=== PATIENT | male | born 1960 | race Caucasian/White ===

== ENCOUNTER 2025-08-26 13:57 | Inpatient (IN) ==
[2025-08-26] MEDS: IPRATROPIUM/ALBUTEROL 3 ML AMPUL.NEB NEB ONE ×5 (14:22→19:35)
[2025-08-26] MEDS: MAGNESIUM SULFATE 2 GM/50 ML BAG IV ONE (14:23)
[2025-08-26 15:12] LABS: Basophils # (Auto) 0.02 K/mcL (0.00-0.30); Basophils % (Auto) 0.2 % (0.0-2.0); Eosinophils # (Auto) 0.06 K/mcL (0.00-0.70); Eosinophils % (Auto) 0.7 % (0.0-7.0); Hematocrit 46.9 % (40.1-51.0); Hemoglobin 14.6 g/dL (13.7-17.5); Lymphocytes # (Auto) 0.86 K/mcL (1.50-4.80); Lymphocytes % (Auto) 9.7 % (15.5-49.0); Mean Corpuscular HGB Conc 31.1 g/dL (31.0-36.0); Monocytes # (Auto) 1.06 K/mcL (0.10-0.90); Monocytes % (Auto) 11.9 % (1.0-12.0); Neutrophils % (Auto) 76.7 % (38.0-78.0); Platelet Count 236 K/mcL (140-440); RBC 4.72 M/mcL (4.63-6.08); WBC 8.9 K/mcL (4.5-11.0)
[2025-08-26 15:19] LABS: Anion Gap 8.0 (8.0-16.0); Blood Urea Nitrogen 9 mg/dL (8-23); Calcium 9.0 mg/dL (8.6-10.4); Carbon Dioxide 38 mmol/L (22-30); Chloride 95 mmol/L (96-108); Glucose 101 mg/dL (70-105); Potassium 4.3 mmol/L (3.3-5.1); Sodium 141 mmol/L (133-145)
[2025-08-26] MEDS: 0.9 % SODIUM CHLORIDE 1,000 ML IV ONE (18:30)
[2025-08-26] MEDS ORDERED: ALBUTEROL SULFATE 60 PUFF INHALER INH PRN (21:28)
[2025-08-26] MEDS ORDERED: SENNOSIDES 1 TABLET PO PRN (21:57)
[2025-08-26] MEDS ORDERED: tiZANidine 4 MG TABLET PO PRN (21:57)
[2025-08-26] MEDS ORDERED: ONDANSETRON 4 MG/2 ML VIAL IV PRN (21:57)
[2025-08-26] MEDS ORDERED: ACETAMINOPHEN 325 MG TABLET PO PRN (21:57)
[2025-08-26] MEDS ORDERED: LACTULOSE 20 GM/30 ML ORAL.SOL PO PRN (21:57)
[2025-08-26] MEDS: IPRATROPIUM/ALBUTEROL 3 ML AMPUL.NEB NEB SCH (22:00)
[2025-08-26] MEDS: MIRTAZAPINE 15 MG TABLET PO SCH (23:42)
[2025-08-26] MEDS: 0.9 % SODIUM CHLORIDE 10 ML SYRINGE IV SCH (23:46)
[2025-08-26] MEDS: NICOTINE 7 MG PATCH TD SCH (23:48)
[2025-08-27] MEDS: AZITHROMYCIN 500 MG in DEXTROSE 5% IN WATER 250 ML IV SCH (00:07)
[2025-08-27] MEDS: IPRATROPIUM/ALBUTEROL 3 ML AMPUL.NEB NEB PRN (03:15)
[2025-08-27 06:22] LABS: VBG HCO3 37.8 mmol/L (24.0-28.0); VBG PCO2 62.4 mmHg (41.0-51.0); VBG PH 7.40 U (7.32-7.42); VBG PO2 28.1 mmHg (25.0-40.0)
[2025-08-27 06:29] LABS: Basophils # (Auto) 0.01 K/mcL (0.00-0.30); Basophils % (Auto) 0.2 % (0.0-2.0); Eosinophils # (Auto) 0 K/mcL (0.00-0.70); Eosinophils % (Auto) 0 % (0.0-7.0); Hematocrit 49.3 % (40.1-51.0); Hemoglobin 15.5 g/dL (13.7-17.5); Lymphocytes # (Auto) 0.22 K/mcL (1.50-4.80); Lymphocytes % (Auto) 3.7 % (15.5-49.0); Mean Corpuscular HGB Conc 31.4 g/dL (31.0-36.0); Monocytes # (Auto) 0.16 K/mcL (0.10-0.90); Monocytes % (Auto) 2.7 % (1.0-12.0); Neutrophils % (Auto) 92.2 % (38.0-78.0); Platelet Count 227 K/mcL (140-440); RBC 5.03 M/mcL (4.63-6.08); WBC 6.0 K/mcL (4.5-11.0)
[2025-08-27 07:10] LABS: ALT/SGPT 46 U/L (<40); AST/SGOT 28 U/L (<40); Albumin 4.3 gm/dL (3.2-5.2); Albumin/Globulin Ratio 1.3 (1.0-2.3); Alkaline Phosphatase 102 U/L (39-117); Anion Gap 9.0 (8.0-16.0); Bilirubin,Total 0.4 mg/dL (0.1-1.0); Blood Urea Nitrogen 12 mg/dL (8-23); Calcium 9.3 mg/dL (8.6-10.4); Carbon Dioxide 35 mmol/L (22-30); Chloride 95 mmol/L (96-108); Globulin 3.2 gm/dL (2.2-3.7); Glucose 155 mg/dL (70-105); Phosphorous 2.6 mg/dL (2.5-4.5); Potassium 4.5 mmol/L (3.3-5.1); Sodium 139 mmol/L (133-145)
[2025-08-27] MEDS: FINASTERIDE 5 MG TABLET PO SCH (08:34)
[2025-08-27] MEDS: TAMSULOSIN 0.4 MG CAPSULE PO SCH (08:34)
[2025-08-27] MEDS: CETIRIZINE 10 MG TABLET PO SCH (08:35)
[2025-08-27] MEDS: PANTOPRAZOLE 40 MG TABLET PO SCH (08:35)
[2025-08-27] MEDS: guaiFENesin 600 MG TAB.SR.12H PO SCH (08:35)
[2025-08-27] MEDS: DOCUSATE SODIUM 100 MG CAPSULE PO SCH (08:36)
[2025-08-27] MEDS: Fluticasone Furoate-Vilanterol [Breo Ellipta] 100 INH SCH (08:37)
[2025-08-27] MEDS: Umeclidinium [Incruse Ellipta] 62.5 mcg/actuation INH SCH (08:37)
[2025-08-27] MEDS ORDERED: hydrALAZINE 20 MG/ML VIAL IV PRN (09:02)
[2025-08-28 06:19] LABS: VBG HCO3 35.1 mmol/L (24.0-28.0); VBG PCO2 61.2 mmHg (41.0-51.0); VBG PH 7.38 U (7.32-7.42); VBG PO2 37.2 mmHg (25.0-40.0)
[2025-08-28 07:01] LABS: Phosphorous 4.1 mg/dL (2.5-4.5)
[2025-08-28 07:53] LABS: ALT/SGPT 44 U/L (<40); AST/SGOT 35 U/L (<40); Albumin 4.0 gm/dL (3.2-5.2); Albumin/Globulin Ratio 1.3 (1.0-2.3); Alkaline Phosphatase 89 U/L (39-117); Anion Gap 9.0 (8.0-16.0); Bilirubin,Total 0.4 mg/dL (0.1-1.0); Blood Urea Nitrogen 18 mg/dL (8-23); Calcium 9.2 mg/dL (8.6-10.4); Carbon Dioxide 34 mmol/L (22-30); Chloride 98 mmol/L (96-108); Globulin 3.0 gm/dL (2.2-3.7); Glucose 165 mg/dL (70-105); Potassium 4.3 mmol/L (3.3-5.1); Sodium 141 mmol/L (133-145)
[2025-08-28 07:58] LABS: Basophils # (Auto) 0.01 K/mcL (0.00-0.30); Basophils % (Auto) 0.1 % (0.0-2.0); Eosinophils # (Auto) 0 K/mcL (0.00-0.70); Eosinophils % (Auto) 0 % (0.0-7.0); Hematocrit 49.2 % (40.1-51.0); Hemoglobin 15.6 g/dL (13.7-17.5); Lymphocytes # (Auto) 0.32 K/mcL (1.50-4.80); Lymphocytes % (Auto) 3.6 % (15.5-49.0); Mean Corpuscular HGB Conc 31.7 g/dL (31.0-36.0); Monocytes # (Auto) 0.33 K/mcL (0.10-0.90); Monocytes % (Auto) 3.7 % (1.0-12.0); Neutrophils % (Auto) 91.5 % (38.0-78.0); Platelet Count 274 K/mcL (140-440); RBC 5.05 M/mcL (4.63-6.08); WBC 8.9 K/mcL (4.5-11.0)
[2025-08-28] MEDS: FLU VACC TS2025-26(6MOS UP)/PF 45 MCG/0.5 ML SYRINGE IM ONE (10:43)
[2025-08-28] MEDS: PNEUMOCOCCAL 23-VAL P-SAC VAC 0.5 ML SYRINGE IM ONE (10:44)
[2025-08-28] MEDS ORDERED: tiZANidine 4 MG TABLET PO PRN (14:34)
[2025-08-28 14:48] VITALS: O2SAT 92
[2025-08-28 16:07] VITALS: TEMP 98
== END 2025-08-28 15:12 | disposition home or self-care (01) | DRG 190 ==
LOC: ED 13:57 → ICU 21:56
PROVIDERS: ADMIT Internal Medicine; ATTEND Internal Medicine